=== PATIENT | male | born 1975 | race Caucasian/White ===

== ENCOUNTER 2021-02-27 00:05 | Emergency (ER) | payer OTHER ==
[2021-02-27] MEDS ORDERED: MYCOSTATIN POWD15 GM TOP (08:52)
[2021-02-27] MEDS ORDERED: ANTI-ITCH28 GM TP (08:53)
== END 2021-02-27 09:10 | disposition home or self-care (01) ==
LOC: ER1 00:05
DX: S80.862A Insect bite (nonvenomous), left lower leg, initial encounter (principal); S80.861A Insect bite (nonvenomous), right lower leg, initial encounter; S70.362A Insect bite (nonvenomous), left thigh, initial encounter; S70.361A Insect bite (nonvenomous), right thigh, initial encounter; F17.210 Nicotine dependence, cigarettes, uncomplicated
CPT/HCPCS: 99282